=== PATIENT | female | born 1975 | race Two or more races ===

== ENCOUNTER 2016-12-24 06:11 | Day surgery (SDC) | payer BC ==
[~2016-12-24] VITALS: Ht 152.4 cm; Wt 84.1 kg
[~2016-12-24 06:11] MED LIST: ASPI81CH3 PO; CLON0.5T PO; GUAI600 PO; HYDR50TA94 PO; LIDO1SOL PO; METO100T9 PO; OMEP40CA2 PO; SERT-132 PO; ZOCO40TA PO
[2016-12-24] MEDS ORDERED: ACETAMINOPHEN 1000 MG/100 ML 0 ML IV ONE (06:24)
[2016-12-24] MEDS ORDERED: ISOPROTERENOL HCL 1 MG/5 ML AMP ONE (06:54)
[2016-12-24] MEDS ORDERED: SODIUM CHLOR 0.9% 250 ML INJ 250 ML ONE (07:05)
[2016-12-24] MEDS ORDERED: LACTATED RINGER'S 1000 ML IV PRN (07:15)
[2016-12-24] MEDS ORDERED: POVIDONE IODINE 5% (ANTISEPSIS KIT) 4 APPLICATIONS EACH NARE PRN (07:15)
[2016-12-24] MEDS ORDERED: METOPROLOL TARTRATE 25 MG TAB PO PRN (07:15)
[2016-12-24] MEDS ORDERED: INSULIN HUMAN REGULAR 1,000 UNITS/10 ML VIAL SQ PRN (07:15)
[2016-12-24] MEDS ORDERED: LORazepam 1 MG TAB SL SCH (07:15)
[2016-12-24] MEDS ORDERED: SODIUM CHLORID 0.9% 500 ML IV PRN (07:15)
[2016-12-24] MEDS ORDERED: CHLORHEXIDINE GLUCONATE 2 % 1 PACK (2 CLOTHS) TOPICAL PRN (07:15)
[2016-12-24 07:28] LABS: AUTOMATED NEUTROPHIL # 2.8 TH/MM3 (1.8-7.7); BASOPHIL % 0.2 % (0.0-2.0); EOSINOPHIL # 0.1 TH/MM3 (0-0.4); EOSINOPHIL % 2.1 % (0.0-4.0); HEMATOCRIT 39.2 % (35.0-46.0); HEMOGLOBIN 13.1 GM/DL (11.6-15.3); INTERNATIONAL NORMALIZED RATIO 0.9 RATIO; LYMPH % 34.4 % (9.0-44.0); LYMPHOCYTE # 1.7 TH/MM3 (1.0-4.8); MEAN CELL VOLUME 87.6 FL (80.0-100.0); MEAN CORPUSCULAR HEMOGLOBIN 29.2 PG (27.0-34.0); MEAN CORPUSCULAR HGB CONC 33.4 % (32.0-36.0); MEAN PLATELET VOLUME 9.2 FL (7.0-11.0); MONO % 6.3 % (0.0-8.0); MONOCYTE # 0.3 TH/MM3 (0-0.9); PLATELET COUNT 252 TH/MM3 (150-450); PROTHROMBIN TIME - PATIENT 10.1 SEC (9.8-11.6); RED BLOOD COUNT 4.48 MIL/MM3 (4.00-5.30); RED CELL DISTRIBUTION WIDTH 13.1 % (11.6-17.2); WHITE BLOOD COUNT 4.9 TH/MM3 (4.0-11.0)
[2016-12-24] MEDS ORDERED: SODIUM CHLORID 0.9% 500 ML INJ 500 ML IV SCH (07:30)
[2016-12-24] MEDS ORDERED: NO HOME MEDICATIONS (07:43)
[2016-12-24 07:45] LABS: BICARBONATE 25.7 MEQ/L (21.0-32.0); CALCIUM 8.9 MG/DL (8.5-10.1); CREATININE 0.71 MG/DL (0.50-1.00)
[2016-12-24 08:24] VITALS: BP 137/84; PULSE 75; RESP 18; TEMP 97.8; O2SAT 99
[2016-12-24] MEDS ORDERED: PROPOFOL 200 MG/20 ML AMP ONE (09:02)
--- NOTE | 2016-12-24 09:16 | CATHPROC ---
[employer] HIS Report Study Information Study Number Admission Scheduled Start Study Start [id number] Dec 24 2016 6:11AM 12/24/2016 Dec 24 2016 7:45AM [place] Service Electrophysiology Study Admit Source Facility Department Other [facility] - Client Care Specialist Physician and Clinical Staff Initial Anne Valenzuela Yard Associate Niyah Ramirez,RN Yard Associate Yoko Noonan,RT(R) TECH2 Other Anesthesia, REPTILE KEEPER Recorder Niyah Ramirez,SHERLYN Scrub Joshua Castro,RT(R) Procedures Performed Procedure Ablation Procedure Equipment Time Hematology Technologist Description Size Mfg Part Number Used/Scrape d [id number] 07:47 [employer] INDUSTRIES PACK, CCL CUSTOM * Used *[id number] 07:47 [employer] PACER HSIEH, LIMB * 2530 *[id number] Used [id number] 07:47 [facility] BLANKET,WARM AIR CCL * Used *[id number] 07:47 [employer]HE[employer], JSN, QUAD FR 5 Used *[id number] 07:47 [employer] CATHETER, JSN, QUAD FR 5 Used *[id number] 07:47 [employer] CATHETER, JSN, QUAD FR 5 Used *[id number] 07:47 [employer] CATHETER, JSN, QUAD FR 5 Used *[id number] 07:47 [employer] ELECTRODE KIT, SHERRELL X SURFACE * [id number] Used [id number] 07:48 [employer] SHEATH, EPS, FR5 FAST CATH FR 5 Used *[id number] [id number] 07:48 [employer] SHEATH, EPS, FR5 FAST CATH FR 5 Used *[id number] 718982 07:48 [employer] SHEATH, EPS, FR5 FAST CATH FR 5 Used *[id number] 563331 07:48 [employer] SHEATH, EPS, FR6 FAST CATH FR 6 Used *[id number] 137058 07:48 [facility] SHEATH, EPS, FR8 FAST CATH FR 8 Used *[id number] [facility] PAD, ELECTROSURGICAL 07:47 * [id number] *[id number] Used SURGICAL GROUNDING (BLUE) Medication Medication Total Dose (Bolus/Oral) Medication Total Dosage/Unit 1% XYLOCAINE 40 mL Medications (Bolus/Oral) Medication Time Given Dosage/Unit Administered By Reason 1% XYLOCAINE 12/24/2016 8:26:07 AM 20 mL Anne Santiago 20 mL 1% XYLOCAINE given in lab by Anne Santiago in Left Groin via Subcutaneous. 1% XYLOCAINE 12/24/2016 8:28:59 AM 20 mL Anne Santiago 20 mL 1% XYLOCAINE given in lab by Anne Santiago in Right Groin via Subcutaneous. Medication (Drip) Medication Time Given Dosage/Unit Concentration/Unit Diluent (ml) Solution ISUPREL 12/24/2016 8:41:23 AM 4 mcg/min 1 mg 250 NaCl .9 4 mcg/min ISUPREL given in lab by Anesthesia, REPTILE KEEPER via Peripheral IV. Pump/Drip Flow = 60 ml/hr using NaCl .9 with a concentration of 1 mg in 250 ml. Ordered by Anne Santiago. ISUPREL 12/24/2016 8:44:32 AM 2 mcg/min 1 mg 250 NaCl .9 2 mcg/min ISUPREL given in lab by Anesthesia, REPTILE KEEPER via Peripheral IV. Pump/Drip Flow = 30 ml/hr using NaCl .9 with a concentration of 1 mg in 250 ml. Ordered by Anne Santiago. DECREASED Initial Case Assessment Cardiovascular HR Rhythm NIBP Chest Pain 78 SR 128/68 0 Edema Present Skin color Skin None Normal Warm Dry Circulatory - Right Pulses Dorsalis Pedis 2 Scale (0,1,2,3,4,d) Circulatory - Left Pulses Dorsalis Pedis 2 Scale (0,1,2,3,4,d) Neurological State Oriented to time-place- Alert Moves all extremities person Respiration - General Respiration Rate SpO2 (%) (B/min) 18 96 Final Case Assessment Cardiovascular HR Rhythm NIBP Chest Pain 88 SR 101/56 0 Edema Present Skin color Skin None Normal Warm Dry Circulatory - Right Pulses Dorsalis Pedis 2 Scale (0,1,2,3,4,d) Circulatory - Left Pulses Dorsalis Pedis 2 Scale (0,1,2,3,4,d) Neurological State Oriented to time-place- Alert Moves all extremities person Respiration - General Respiration Rate SpO2 (%) O2 (lpm) (B/min) 18 97 2 Chronological Log Time Study Chronological Log 7:40:32 Patient arrived via Bed. 7:40:48 Anesthesia at bedside. Assumes care of patient. SEE RECORDS FOR ALL MEDS AND VITALS DURING PROCEDURE. 7:45:44 Patient Name, D.O.B, / Armband Verified By R.N. 7:45:46 Consent signed by the physician and the patient and verified by the Client Care Specialist staff. 7:45:47 Pre-op and post- op instructions given; patient acknowledges understanding of instructions. 7:45:51 Presedation assessment performed by Client Care Specialist RN. 7:45:55 Patient has been NPO for More than 6Hrs. 7:45:58 Skin Breakdown/none per patient 7:46:55 Patient Warmer Placed on the Table. 7:46:56 Disposable Defibrillator Pads Placed On Patient. 7:46:57 [place] Prominences Protected 7:58:08 Verbal Stimulation=2 Physical Stimulation=2 Airway=2 Respiration=2 TOTAL=8. (0=absent, 1=li mited, 2=present) 8:04:00 paged 8:04:38 A # 20 IV was noted in the Forearm (right). Grade = 0 8:04:39 A # 20 IV was noted in the Antecubital (left). Grade = 0 8:05:36 MD responded 8:07:17 Reference ECG taken 8:07:51 History and physical on the chart or being dictated. 8:07:52 Table restraints applied according to hospital policy 8:07:54 Bilateral groins prepped with 2% chlorhexidine, and draped after a 3 minute waiting time. Assessment: Initial Case, HR=78 BPM, Rhythm=SR, ENPG=241/68 mmhg, Chest Pain=0, Edema=None, [place] r=Normal, Skin = Warm, Dry Right Pulses: Claus Ped=2 8:07:59 Left Pulses: Claus Ped=2 Neurological: State=Alert, Ox3, MARTIN Respiration: Resp=18 B/min, SpO2=96 % 8:21:14 MD arrived. Time Out. Correct patient, procedure, procedure equipment, site and side verified with physician present. Time 8:25:45 concurred by MD, individual staff and REPTILE KEEPER. Time Out #2 - Consents verified, patient in correct position, all results are labled and display ed, safety precautions 8:25:47 taken, antibiotics administered. Time out concurred by MD, individual staff and REPTILE KEEPER in procedur e 8:25:48 Case Start 8:26:07 20 mL 1% XYLOCAINE given in lab by Anne Santiago in Left Groin via Subcutaneous. 8:27:38 Vascular access was obtained in the Fem Vein (left). 8:27:40 Vascular access was obtained in the Fem Vein (left). 8:27:41 Vascular access was obtained in the Fem Vein (left). 8:27:46 A SHEATH, EPS, FR5 FAST CATH FR 5 was advanced into the Fem Vein (left) using the Modified S eldinger technique. 8:28:03 A SHEATH, EPS, FR5 FAST CATH FR 5 was advanced into the Fem Vein (left) using the Modified S eldinger technique. 8:28:08 A SHEATH, EPS, FR5 FAST CATH FR 5 was advanced into the Fem Vein (left) using the Modified S eldinger technique. 8:28:59 20 mL 1% XYLOCAINE given in lab by Anne Santiago in Right Groin via Subcutaneous. 8:29:25 Vascular access was obtained in the Fem Vein (right). 8:29:27 Vascular access was obtained in the Fem Vein (right). 8:29:34 A SHEATH, EPS, FR6 FAST CATH FR 6 was advanced into the Fem Vein (right) using the Modified Seldinger technique. 8:29:59 A SHEATH, EPS, FR8 FAST CATH FR 8 was advanced into the Fem Vein (right) using the Modified Seldinger technique. A CATHETER, JSN, QUAD FR 5 was advanced vis Fem Vein (right) and placed in the CS. Placement was visually 8:32:33 confirmed under fluoroscopy. A CATHETER, JSN, QUAD FR 5 was advanced vis Fem Vein (left) and placed in the HIS. Placement was visually 8:32:45 confirmed under fluoroscopy. A CATHETER, JSN, QUAD FR 5 was advanced vis Fem Vein (left) and placed in the HRA. Placement was visually 8:33:02 confirmed under fluoroscopy. A CATHETER, JSN, QUAD FR 5 was advanced vis Fem Vein (left) and placed in the RVA. Placement was visually 8:33:12 confirmed under fluoroscopy. 4 mcg/min ISUPREL given in lab by Anesthesia, REPTILE KEEPER via Peripheral IV. Pump/Drip Flow = 60 ml/hr using NaCl .9 with 8:41:23 a concentration of 1 mg in 250 ml. Ordered by Anne Santiago. 2 mcg/min ISUPREL given in lab by Anesthesia, REPTILE KEEPER via Peripheral IV. Pump/Drip Flow = 30 ml/hr using NaCl .9 with 8:44:32 a concentration of 1 mg in 250 ml. Ordered by Anne Santiago. DECREASED 9:08:00 Case End 9:10:57 Ablation procedure performed: SVT. 9:11:03 EP Procedure was performed. EP STUDY ONLY NOT ABLE TO INDUCE 9:11:25 Catheter(s) removed without difficulty 9:11:28 Sheath(s) left in place, will be removed in Holding Area Assessment: Final Case, HR=88 BPM, Rhythm=SR, SDIR=638/56 mmhg, Chest Pain=0, Edema=None, Color= Normal, Skin = Warm, Dry Right Pulses: Claus Ped=2 9:11:29 Left Pulses: Claus Ped=2 Neurological: State=Alert, Ox3, MARTIN Respiration: Resp=18 B/min, SpO2=97 %, O2=2 lpm 9:12:19 Sterile dressing applied to site 9:12:20 No case complications noted. 9:12:21 Cine recording checked. 9:12:22 Bedside Report will be given. 9:12:25 DOCU called. Spoke to [employer] 9:14:58 Defibrillator and ground pads removed. Skin intact. End Study - Contrast Media Used In Study Contrast Total Opened (mL) Total Used (mL) Total Wasted (mL) Unspecified 0 0 0 End Study - Radiation Exposure Fluoro Time (minutes) 1.2 End Study - Patient Disposition Complications Transferred To Interventional Outcome No Telemetry Bed successful
--- NOTE | 2016-12-24 09:16 | CATHPROC ---
[employer] HIS Report Study Information Study Number Admission Scheduled Start Study Start [id number] Dec 24 2016 6:11AM 12/24/2016 Dec 24 2016 7:45AM [place] Service Electrophysiology Study Admit Source Facility Department Other [facility] - Counter Control Operator Physician and Clinical Staff Initial Anne Valenzuela Frame Wirer Niyah Ramirez,RN Frame Wirer Yoko Noonan,RT(R) TECH2 Other Anesthesia, ASSEMBLY TECHNICIAN Recorder Niyah Ramirez,SHERLYN Scrub Joshua Castro,RT(R) Procedures Performed Procedure Ablation Procedure Equipment Time Die Turner Description Size Mfg Part Number Used/Scrape d [id number] 07:47 [employer] PACK, CCL CUSTOM * Used *[id number] 07:47 [employer] PACER HSIEH, LIMB * 2530 *[id number] Used [id number] 07:47 [facility] BLANKET,WARM AIR CCL * Used *[id number] 241972 07:47 [employer] CATHETER, JSN, QUAD FR 5 Used *[id number] [id number] 07:47 [employer] CATHETER, JSN, QUAD FR 5 Used *[id number] 412059 07:47 [employer] CATHETER, JSN, QUAD FR 5 Used *[id number] 081866 07:47 [employer] CATHETER, JSN, QUAD FR 5 Used *[id number] 07:47 [employer] ELECTRODE KIT, SHERRELL X SURFACE * [id number] Used [id number] 07:48 [employer] SHEATH, EPS, FR5 FAST CATH FR 5 Used *[id number] 205208 07:48 [employer] SHEATH, EPS, FR5 FAST CATH FR 5 Used *[id number] 100115 07:48 [employer] SHEATH, EPS, FR5 FAST CATH FR 5 Used *[id number] 248141 07:48 [employer] SHEATH, EPS, FR6 FAST CATH FR 6 Used *[id number] 447628 07:48 [employer] SHEATH, EPS, FR8 FAST CATH FR 8 Used *[id number] [facility] PAD, ELECTROSURGICAL 07:47 * [id number] *[id number] Used SURGICAL GROUNDING (BLUE) Medication Medication Total Dose (Bolus/Oral) Medication Total Dosage/Unit 1% XYLOCAINE 40 mL Medications (Bolus/Oral) Medication Time Given Dosage/Unit Administered By Reason 1% XYLOCAINE 12/24/2016 8:26:07 AM 20 mL Anne Santiago 20 mL 1% XYLOCAINE given in lab by Anne Santiago in Left Groin via Subcutaneous. 1% XYLOCAINE 12/24/2016 8:28:59 AM 20 mL Anne Santiago 20 mL 1% XYLOCAINE given in lab by Anne Santiago in Right Groin via Subcutaneous. Medication (Drip) Medication Time Given Dosage/Unit Concentration/Unit Diluent (ml) Solution ISUPREL 12/24/2016 8:41:23 AM 4 mcg/min 1 mg 250 NaCl .9 4 mcg/min ISUPREL given in lab by Anesthesia, ASSEMBLY TECHNICIAN via Peripheral IV. Pump/Drip Flow = 60 ml/hr using NaCl .9 with a concentration of 1 mg in 250 ml. Ordered by Anne Santiago. ISUPREL 12/24/2016 8:44:32 AM 2 mcg/min 1 mg 250 NaCl .9 2 mcg/min ISUPREL given in lab by Anesthesia, ASSEMBLY TECHNICIAN via Peripheral IV. Pump/Drip Flow = 30 ml/hr using NaCl .9 with a concentration of 1 mg in 250 ml. Ordered by Anne Santiago. DECREASED Initial Case Assessment Cardiovascular HR Rhythm NIBP Chest Pain 78 SR 128/68 0 Edema Present Skin color Skin None Normal Warm Dry Circulatory - Right Pulses Dorsalis Pedis 2 Scale (0,1,2,3,4,d) Circulatory - Left Pulses Dorsalis Pedis 2 Scale (0,1,2,3,4,d) Neurological State Oriented to time-place- Alert Moves all extremities person Respiration - General Respiration Rate SpO2 (%) (B/min) 18 96 Final Case Assessment Cardiovascular HR Rhythm NIBP Chest Pain 88 SR 101/56 0 Edema Present Skin color Skin None Normal Warm Dry Circulatory - Right Pulses Dorsalis Pedis 2 Scale (0,1,2,3,4,d) Circulatory - Left Pulses Dorsalis Pedis 2 Scale (0,1,2,3,4,d) Neurological State Oriented to time-place- Alert Moves all extremities person Respiration - General Respiration Rate SpO2 (%) O2 (lpm) (B/min) 18 97 2 Chronological Log Time Study Chronological Log 7:40:32 Patient arrived via Bed. 7:40:48 Anesthesia at bedside. Assumes care of patient. SEE RECORDS FOR ALL MEDS AND VITALS DURING PROCEDURE. 7:45:44 Patient Name, D.O.B, / Armband Verified By R.N. 7:45:46 Consent signed by the physician and the patient and verified by the Counter Control Operator staff. 7:45:47 Pre-op and post- op instructions given; patient acknowledges understanding of instructions. 7:45:51 Presedation assessment performed by Counter Control Operator RN. 7:45:55 Patient has been NPO for More than 6Hrs. 7:45:58 Skin Breakdown/none per patient 7:46:55 Patient Warmer Placed on the Table. 7:46:56 Disposable Defibrillator Pads Placed On Patient. 7:46:57 [employer] Prominences Protected 7:58:08 Verbal Stimulation=2 Physical Stimulation=2 Airway=2 Respiration=2 TOTAL=8. (0=absent, 1=li mited, 2=present) 8:04:00 paged 8:04:38 A # 20 IV was noted in the Forearm (right). Grade = 0 8:04:39 A # 20 IV was noted in the Antecubital (left). Grade = 0 8:05:36 MD responded 8:07:17 Reference ECG taken 8:07:51 History and physical on the chart or being dictated. 8:07:52 Table restraints applied according to hospital policy 8:07:54 Bilateral groins prepped with 2% chlorhexidine, and draped after a 3 minute waiting time. Assessment: Initial Case, HR=78 BPM, Rhythm=SR, KQMM=576/68 mmhg, Chest Pain=0, Edema=None, [place] r=Normal, Skin = Warm, Dry Right Pulses: Claus Ped=2 8:07:59 Left Pulses: Claus Ped=2 Neurological: State=Alert, Ox3, MARTIN Respiration: Resp=18 B/min, SpO2=96 % 8:21:14 MD arrived. Time Out. Correct patient, procedure, procedure equipment, site and side verified with physician present. Time 8:25:45 concurred by MD, individual staff and ASSEMBLY TECHNICIAN. Time Out #2 - Consents verified, patient in correct position, all results are labled and display ed, safety precautions 8:25:47 taken, antibiotics administered. Time out concurred by MD, individual staff and ASSEMBLY TECHNICIAN in procedur e 8:25:48 Case Start 8:26:07 20 mL 1% XYLOCAINE given in lab by Anne Santiago in Left Groin via Subcutaneous. 8:27:38 Vascular access was obtained in the Fem Vein (left). 8:27:40 Vascular access was obtained in the Fem Vein (left). 8:27:41 Vascular access was obtained in the Fem Vein (left). 8:27:46 A SHEATH, EPS, FR5 FAST CATH FR 5 was advanced into the Fem Vein (left) using the Modified S eldinger technique. 8:28:03 A SHEATH, EPS, FR5 FAST CATH FR 5 was advanced into the Fem Vein (left) using the Modified S eldinger technique. 8:28:08 A SHEATH, EPS, FR5 FAST CATH FR 5 was advanced into the Fem Vein (left) using the Modified S eldinger technique. 8:28:59 20 mL 1% XYLOCAINE given in lab by Anne Santiago in Right Groin via Subcutaneous. 8:29:25 Vascular access was obtained in the Fem Vein (right). 8:29:27 Vascular access was obtained in the Fem Vein (right). 8:29:34 A SHEATH, EPS, FR6 FAST CATH FR 6 was advanced into the Fem Vein (right) using the Modified Seldinger technique. 8:29:59 A SHEATH, EPS, FR8 FAST CATH FR 8 was advanced into the Fem Vein (right) using the Modified Seldinger technique. A CATHETER, JSN, QUAD FR 5 was advanced vis Fem Vein (right) and placed in the CS. Placement was visually 8:32:33 confirmed under fluoroscopy. A CATHETER, JSN, QUAD FR 5 was advanced vis Fem Vein (left) and placed in the HIS. Placement was visually 8:32:45 confirmed under fluoroscopy. A CATHETER, JSN, QUAD FR 5 was advanced vis Fem Vein (left) and placed in the HRA. Placement was visually 8:33:02 confirmed under fluoroscopy. A CATHETER, JSN, QUAD FR 5 was advanced vis Fem Vein (left) and placed in the RVA. Placement was visually 8:33:12 confirmed under fluoroscopy. 4 mcg/min ISUPREL given in lab by Anesthesia, ASSEMBLY TECHNICIAN via Peripheral IV. Pump/Drip Flow = 60 ml/hr using NaCl .9 with 8:41:23 a concentration of 1 mg in 250 ml. Ordered by Anne Santiago. 2 mcg/min ISUPREL given in lab by Anesthesia, ASSEMBLY TECHNICIAN via Peripheral IV. Pump/Drip Flow = 30 ml/hr using NaCl .9 with 8:44:32 a concentration of 1 mg in 250 ml. Ordered by Anne Santiago. DECREASED 9:08:00 Case End 9:10:57 Ablation procedure performed: SVT. 9:11:03 EP Procedure was performed. EP STUDY ONLY NOT ABLE TO INDUCE 9:11:25 Catheter(s) removed without difficulty 9:11:28 Sheath(s) left in place, will be removed in Holding Area Assessment: Final Case, HR=88 BPM, Rhythm=SR, UNEF=553/56 mmhg, Chest Pain=0, Edema=None, Color= Normal, Skin = Warm, Dry Right Pulses: Claus Ped=2 9:11:29 Left Pulses: Claus Ped=2 Neurological: State=Alert, Ox3, MARTIN Respiration: Resp=18 B/min, SpO2=97 %, O2=2 lpm 9:12:19 Sterile dressing applied to site 9:12:20 No case complications noted. 9:12:21 Cine recording checked. 9:12:22 Bedside Report will be given. 9:12:25 DOCU called. Spoke to [email or web address] 9:14:58 Defibrillator and ground pads removed. Skin intact. End Study - Contrast Media Used In Study Contrast Total Opened (mL) Total Used (mL) Total Wasted (mL) Unspecified 0 0 0 End Study - Radiation Exposure Fluoro Time (minutes) 1.2 End Study - Patient Disposition Complications Transferred To Interventional Outcome No Telemetry Bed successful
--- NOTE | 2016-12-24 09:16 | CATHPROC ---
[employer] HIS Report Study Information Study Number Admission Scheduled Start Study Start [id number] Dec 24 2016 6:11AM 12/24/2016 Dec 24 2016 7:45AM [facility] Electrophysiology Study Admit Source Facility Department Other [facility] Physician and Clinical Staff Initial Anne Valenzuela Screening Unit Registered Nurse Niyah Ramirez,RN Screening Unit Registered Nurse Yoko Noonan,RT(R) TECH2 Other Anesthesia, [employer] BLASTING Recorder Niyah Ramirez,SHERLYN Scrub Joshua Castro,RT(R) Procedures Performed Procedure Ablation Procedure Equipment Time Occupational Physician Description Size Mfg Part Number Used/Scrape d [id number] 07:47 [employer] PACK, CCL CUSTOM * Used *[id number] 07:47 [employer] PACER HSIEH, LIMB * 2530 *[id number] Used [id number] 07:47 [facility] BLANKET,WARM AIR CCL * Used *[id number] 07:47 [employer] CATHETER, JSN, QUAD FR 5 Used *[id number] 07:47 [employer] CATHE[employer], JSN, QUAD FR 5 Used *[id number] 07:47 [employer] CATHETER, JSN, QUAD FR 5 Used *[id number] 594837 07:47 [employer] CATHETER, JSN, QUAD FR 5 Used *[id number] 07:47 [employer] ELECTRODE KIT, SHERRELL X SURFACE * [id number] Used [id number] 07:48 [employer] SHEATH, EPS, FR5 FAST CATH FR 5 Used *[id number] 07:48 [employer] SHEATH, EPS, FR5 FAST CATH FR 5 Used *[id number] [id number] 07:48 [employer] SHEATH, EPS, FR5 FAST CATH FR 5 Used *[id number] 352484 07:48 [employer] SHEATH, EPS, FR6 FAST CATH FR 6 Used *[id number] 591273 07:48 [employer] SHEATH, EPS, FR8 FAST CATH FR 8 Used *[id number] [facility] PAD, ELECTROSURGICAL 07:47 * [id number] *[id number] Used SURGICAL GROUNDING (BLUE) Medication Medication Total Dose (Bolus/Oral) Medication Total Dosage/Unit 1% XYLOCAINE 40 mL Medications (Bolus/Oral) Medication Time Given Dosage/Unit Administered By Reason 1% XYLOCAINE 12/24/2016 8:26:07 AM 20 mL Anne Santiago 20 mL 1% XYLOCAINE given in lab by Anne Santiago in Left Groin via Subcutaneous. 1% XYLOCAINE 12/24/2016 8:28:59 AM 20 mL Anne Santiago 20 mL 1% XYLOCAINE given in lab by Anne Santiago in Right Groin via Subcutaneous. Medication (Drip) Medication Time Given Dosage/Unit Concentration/Unit Diluent (ml) Solution ISUPREL 12/24/2016 8:41:23 AM 4 mcg/min 1 mg 250 NaCl .9 4 mcg/min ISUPREL given in lab by Anesthesia, [employer] via Peripheral IV. Pump/Drip Flow = 60 ml/hr using NaCl .9 with a concentration of 1 mg in 250 ml. Ordered by Anne Santiago. ISUPREL 12/24/2016 8:44:32 AM 2 mcg/min 1 mg 250 NaCl .9 2 mcg/min ISUPREL given in lab by Anesthesia, [employer] BLASTING via Peripheral IV. Pump/Drip Flow = 30 ml/hr using NaCl .9 with a concentration of 1 mg in 250 ml. Ordered by Anne Santiago. DECREASED Initial Case Assessment Cardiovascular HR Rhythm NIBP Chest Pain 78 SR 128/68 0 Edema Present Skin color Skin None Normal Warm Dry Circulatory - Right Pulses Dorsalis Pedis 2 Scale (0,1,2,3,4,d) Circulatory - Left Pulses Dorsalis Pedis 2 Scale (0,1,2,3,4,d) Neurological State Oriented to time-place- Alert Moves all extremities person Respiration - General Respiration Rate SpO2 (%) (B/min) 18 96 Final Case Assessment Cardiovascular HR Rhythm NIBP Chest Pain 88 SR 101/56 0 Edema Present Skin color Skin None Normal Warm Dry Circulatory - Right Pulses Dorsalis Pedis 2 Scale (0,1,2,3,4,d) Circulatory - Left Pulses Dorsalis Pedis 2 Scale (0,1,2,3,4,d) Neurological State Oriented to time-place- Alert Moves all extremities person Respiration - General Respiration Rate SpO2 (%) O2 (lpm) (B/min) 18 97 2 Chronological Log Time Study Chronological Log 7:40:32 Patient arrived via Bed. 7:40:48 Anesthesia at bedside. Assumes care of patient. SEE RECORDS FOR ALL MEDS AND VITALS DURING PROCEDURE. 7:45:44 Patient Name, D.O.B, / Armband Verified By R.N. 7:45:46 Consent signed by the physician and the patient and verified by the [facility] staff. 7:45:47 Pre-op and post- op instructions given; patient acknowledges understanding of instructions. 7:45:51 Presedation assessment performed by [facility] RN. 7:45:55 Patient has been NPO for More than 6Hrs. 7:45:58 Skin Breakdown/none per patient 7:46:55 Patient Warmer Placed on the Table. 7:46:56 Disposable Defibrillator Pads Placed On Patient. 7:46:57 Lazara Prominences Protected 7:58:08 Verbal Stimulation=2 Physical Stimulation=2 Airway=2 Respiration=2 TOTAL=8. (0=absent, 1=li mited, 2=present) 8:04:00 paged 8:04:38 A # 20 IV was noted in the Forearm (right). Grade = 0 8:04:39 A # 20 IV was noted in the Antecubital (left). Grade = 0 8:05:36 MD responded 8:07:17 Reference ECG taken 8:07:51 History and physical on the chart or being dictated. 8:07:52 Table restraints applied according to hospital policy 8:07:54 Bilateral groins prepped with 2% chlorhexidine, and draped after a 3 minute waiting time. Assessment: Initial Case, HR=78 BPM, Rhythm=SR, VKAN=753/68 mmhg, Chest Pain=0, Edema=None, [place] r=Normal, Skin = Warm, Dry Right Pulses: Claus Ped=2 8:07:59 Left Pulses: Claus Ped=2 Neurological: State=Alert, Ox3, MARTIN Respiration: Resp=18 B/min, SpO2=96 % 8:21:14 MD arrived. Time Out. Correct patient, procedure, procedure equipment, site and side verified with physician present. Time 8:25:45 concurred by MD, individual staff and [employer]. Time Out #2 - Consents verified, patient in correct position, all results are labled and display ed, safety precautions 8:25:47 taken, antibiotics administered. Time out concurred by MD, individual staff and [employer] BLASTING in procedur e 8:25:48 Case Start 8:26:07 20 mL 1% XYLOCAINE given in lab by Anne Santiago in Left Groin via Subcutaneous. 8:27:38 Vascular access was obtained in the Fem Vein (left). 8:27:40 Vascular access was obtained in the Fem Vein (left). 8:27:41 Vascular access was obtained in the Fem Vein (left). 8:27:46 A SHEATH, EPS, FR5 FAST CATH FR 5 was advanced into the Fem Vein (left) using the Modified S eldinger technique. 8:28:03 A SHEATH, EPS, FR5 FAST CATH FR 5 was advanced into the Fem Vein (left) using the Modified S eldinger technique. 8:28:08 A SHEATH, EPS, FR5 FAST CATH FR 5 was advanced into the Fem Vein (left) using the Modified S eldinger technique. 8:28:59 20 mL 1% XYLOCAINE given in lab by Anne Santiago in Right Groin via Subcutaneous. 8:29:25 Vascular access was obtained in the Fem Vein (right). 8:29:27 Vascular access was obtained in the Fem Vein (right). 8:29:34 A SHEATH, EPS, FR6 FAST CATH FR 6 was advanced into the Fem Vein (right) using the Modified Seldinger technique. 8:29:59 A SHEATH, EPS, FR8 FAST CATH FR 8 was advanced into the Fem Vein (right) using the Modified Seldinger technique. A CATHETER, JSN, QUAD FR 5 was advanced vis Fem Vein (right) and placed in the CS. Placement was visually 8:32:33 confirmed under fluoroscopy. A CATHETER, JSN, QUAD FR 5 was advanced vis Fem Vein (left) and placed in the HIS. Placement was visually 8:32:45 confirmed under fluoroscopy. A CATHETER, JSN, QUAD FR 5 was advanced vis Fem Vein (left) and placed in the HRA. Placement was visually 8:33:02 confirmed under fluoroscopy. A CATHETER, JSN, QUAD FR 5 was advanced vis Fem Vein (left) and placed in the RVA. Placement was visually 8:33:12 confirmed under fluoroscopy. 4 mcg/min ISUPREL given in lab by Anesthesia, [employer] BLASTING via Peripheral IV. Pump/Drip Flow = 60 ml/hr using NaCl .9 with 8:41:23 a concentration of 1 mg in 250 ml. Ordered by Anne Santiago. 2 mcg/min ISUPREL given in lab by Anesthesia, [employer] BLASTING via Peripheral IV. Pump/Drip Flow = 30 ml/hr using NaCl .9 with 8:44:32 a concentration of 1 mg in 250 ml. Ordered by Anne Santiago. DECREASED 9:08:00 Case End 9:10:57 Ablation procedure performed: SVT. 9:11:03 EP Procedure was performed. EP STUDY ONLY NOT ABLE TO INDUCE 9:11:25 Catheter(s) removed without difficulty 9:11:28 Sheath(s) left in place, will be removed in Holding Area Assessment: Final Case, HR=88 BPM, Rhythm=SR, NZCB=402/56 mmhg, Chest Pain=0, Edema=None, Color= Normal, Skin = Warm, Dry Right Pulses: Claus Ped=2 9:11:29 Left Pulses: Claus Ped=2 Neurological: State=Alert, Ox3, MARTIN Respiration: Resp=18 B/min, SpO2=97 %, O2=2 lpm 9:12:19 Sterile dressing applied to site 9:12:20 No case complications noted. 9:12:21 Cine recording checked. 9:12:22 Bedside Report will be given. 9:12:25 DOCU called. Spoke to [employer] 9:14:58 Defibrillator and ground pads removed. Skin intact. End Study - Contrast Media Used In Study Contrast Total Opened (mL) Total Used (mL) Total Wasted (mL) Unspecified 0 0 0 End Study - Radiation Exposure Fluoro Time (minutes) 1.2 End Study - Patient Disposition Complications Transferred To Interventional Outcome No Telemetry Bed successful
[2016-12-24] MEDS ORDERED: DO NOT ADM ANY ANTICOAGULANT DRUGS PRN (09:25)
[2016-12-24] MEDS ORDERED: oxyCODONE/ACETAMINOPHEN 5 MG/325 MG TAB PO PRN ×2 (10:00)
[2016-12-24] MEDS ORDERED: LORazepam 2 MG/ML VIAL IV PUSH PRN (10:00)
[2016-12-24] MEDS ORDERED: METOCLOPRAMIDE HCL 10 MG/2 ML VIAL IV PUSH PRN (10:00)
[2016-12-24] MEDS ORDERED: ATROPINE SULFATE 1 MG/ML VIAL IV PUSH PRN (10:00)
[2016-12-24] MEDS ORDERED: LIDOCAINE HCL 1% 50 ML VIAL INFIL PRN (10:00)
[2016-12-24] MEDS ORDERED: ONDANSETRON HCL 4 MG/2 ML VIAL IV PUSH PRN (10:00)
[2016-12-24] MEDS ORDERED: SODIUM CHLOR 0.9% 250 ML INJ 250 ML IV PRN (10:00)
--- NOTE | 2016-12-24 10:06 | MA ---
cc: ABDULAZIZ LATHAM M.D. DATE 12/24/2016 PROCEDURE PERFORMED Electrophysiology study, CS cannulation, 3-D mapping, repeat electrophysiology study on Isuprel infusion. INDICATIONS Mrs. Morgan is a 41-year-old female with a history of atrial fibrillation. She had a previous ablation in 2014. Since then, no tachyarrhythmia. Last month went to the emergency room at [place] with supraventricular tachyarrhythmia. Tachycardia terminated with adenosine. Decision for electrophysiology study and ablation was taken. The risks, the nature and the benefit of the procedure are clearly stated to her. The risks include pneumothorax, cardiac perforation, stroke and even . She understood and agreed to proceed. PROCEDURE After written informed consent was obtained, the patient was brought to the EP lab where she was prepped and draped in the usual sterile fashion. Conscious sedation was initiated and maintained throughout the procedure by anesthesiologist. Once sedation verified, the right and left inguinal area was anesthetized with 2% Xylocaine. Using modified Seldinger technique, the left femoral vein was cannulated on three occasion and three guidewires were advanced. Over the wire, three 5-German Hemaquets were advanced. Then the right femoral vein was cannulated on two occasions and two guidewires were advanced over the wire, a 6 and an 8-German Hemaquet were advanced. Then under fluoroscopic guidance through the 5 and 6-German Hemaquet, four 5-German Magda curved quadripolar electrophysiology catheters were advanced and positioned on the His, upper right atrium, coronary sinus and right ventricular apex. Basic interval was measured, they were within normal limits. At this point, atrial pacing protocol was performed. Atrial pacing protocol consisted of incremental atrial pacing, as well as program stimulation with one drive train cycle length and up to two excess stimuli delivered. No tachyarrhythmia was induced. Then ventricular pacing protocol was performed. There was VA conduction. It was concentric. No tachyarrhythmia was induced ventricular pacing protocol consisted of incremental ventricular pacing, as well as program stimulation with one drive train cycle length and up to one extra stimuli delivered. Then Isuprel infusion was initiated. At 4 janelle, heart rate went to 140 beats per minute. I decreased it to 2 janelle and DC the Isuprel. Atrial pacing protocol and ventricular pacing protocol was pace performed on Isuprel and post Isuprel, no tachyarrhythmia was induced. I did pace from the coronary sinus. No tachyarrhythmia was induced. At that point, procedure was complete. All catheters were removed. The patient is going to be transferred to the recovery room. No incident report. The patient tolerated procedure. Blood loss minimal. 1. Electrocardiogram, at baseline, the patient was in sinus, postprocedure electrocardiogram was unchanged. 2. Basic interval. Basic cycle length was around 880 milliseconds, AH at 78 and HV at 6 milliseconds. 3. Atrial pacing protocol. Wenckebach of the node was 370 milliseconds at baseline. ERP of the node was 600, 300 milliseconds at baseline. No tachyarrhythmia was induced. 4. Ventricular pacing protocol. There was VA conduction. No tachyarrhythmia was induced. CONCLUSION Negative electrophysiology study for supraventricular and tachyarrhythmia. COMMENT AND RECOMMENDATIONS Mrs. Morgan has two or three episode of tachyarrhythmia in the past years. There is no recording of the tachyarrhythmia. There was apparently one that terminated with adenosine, but tracing not available. At this point after talking to her, she is very nervous. A loop recorder will be inserted for monitoring. That will be implanted later today. MD CHRISTINA Chen/CHELSI /9:47 AM /9:54 AM
--- NOTE | 2016-12-24 10:06 | MA ---
cc: ABDULAZIZ LATHAM M.D. DATE 12/24/2016 PROCEDURE PERFORMED Electrophysiology study, CS cannulation, 3-D mapping, repeat electrophysiology study on Isuprel infusion. INDICATIONS Mrs. Morgan is a 41-year-old female with a history of atrial fibrillation. She had a previous ablation in 2014. Since then, no tachyarrhythmia. Last month went to the emergency room at [place] with supraventricular tachyarrhythmia. Tachycardia terminated with adenosine. Decision for electrophysiology study and ablation was taken. The risks, the nature and the benefit of the procedure are clearly stated to her. The risks include pneumothorax, cardiac perforation, stroke and even . She understood and agreed to proceed. PROCEDURE After written informed consent was obtained, the patient was brought to the EP lab where she was prepped and draped in the usual sterile fashion. Conscious sedation was initiated and maintained throughout the procedure by anesthesiologist. Once sedation verified, the right and left inguinal area was anesthetized with 2% Xylocaine. Using modified Seldinger technique, the left femoral vein was cannulated on three occasion and three guidewires were advanced. Over the wire, three 5-Bulgarian Hemaquets were advanced. Then the right femoral vein was cannulated on two occasions and two guidewires were advanced over the wire, a 6 and an 8-Bulgarian Hemaquet were advanced. Then under fluoroscopic guidance through the 5 and 6-Bulgarian Hemaquet, four 5-Bulgarian Magda curved quadripolar electrophysiology catheters were advanced and positioned on the His, upper right atrium, coronary sinus and right ventricular apex. Basic interval was measured, they were within normal limits. At this point, atrial pacing protocol was performed. Atrial pacing protocol consisted of incremental atrial pacing, as well as program stimulation with one drive train cycle length and up to two excess stimuli delivered. No tachyarrhythmia was induced. Then ventricular pacing protocol was performed. There was VA conduction. It was concentric. No tachyarrhythmia was induced ventricular pacing protocol consisted of incremental ventricular pacing, as well as program stimulation with one drive train cycle length and up to one extra stimuli delivered. Then Isuprel infusion was initiated. At 4 janelle, heart rate went to 140 beats per minute. I decreased it to 2 janelle and DC the Isuprel. Atrial pacing protocol and ventricular pacing protocol was pace performed on Isuprel and post Isuprel, no tachyarrhythmia was induced. I did pace from the coronary sinus. No tachyarrhythmia was induced. At that point, procedure was complete. All catheters were removed. The patient is going to be transferred to the recovery room. No incident report. The patient tolerated procedure. Blood loss minimal. 1. Electrocardiogram, at baseline, the patient was in sinus, postprocedure electrocardiogram was unchanged. 2. Basic interval. Basic cycle length was around 880 milliseconds, AH at 78 and HV at 6 milliseconds. 3. Atrial pacing protocol. Wenckebach of the node was 370 milliseconds at baseline. ERP of the node was 600, 300 milliseconds at baseline. No tachyarrhythmia was induced. 4. Ventricular pacing protocol. There was VA conduction. No tachyarrhythmia was induced. CONCLUSION Negative electrophysiology study for supraventricular and tachyarrhythmia. COMMENT AND RECOMMENDATIONS Mrs. Morgan has two or three episode of tachyarrhythmia in the past years. There is no recording of the tachyarrhythmia. There was apparently one that terminated with adenosine, but tracing not available. At this point after talking to her, she is very nervous. A loop recorder will be inserted for monitoring. That will be implanted later today. MD CHRISTINA Chen/CHELSI /9:47 AM /9:54 AM
--- NOTE | 2016-12-24 10:06 | MA ---
cc: ABDULAZIZ LATHAM M.D. DATE 12/24/2016 PROCEDURE PERFORMED Electrophysiology study, CS cannulation, 3-D mapping, repeat electrophysiology study on Isuprel infusion. INDICATIONS Mrs. Morgan is a 41-year-old female with a history of atrial fibrillation. She had a previous ablation in 2014. Since then, no tachyarrhythmia. Last month went to the emergency room at [place] with supraventricular tachyarrhythmia. Tachycardia terminated with adenosine. Decision for electrophysiology study and ablation was taken. The risks, the nature and the benefit of the procedure are clearly stated to her. The risks include pneumothorax, cardiac perforation, stroke and even . She understood and agreed to proceed. PROCEDURE After written informed consent was obtained, the patient was brought to the EP lab where she was prepped and draped in the usual sterile fashion. Conscious sedation was initiated and maintained throughout the procedure by anesthesiologist. Once sedation verified, the right and left inguinal area was anesthetized with 2% Xylocaine. Using modified Seldinger technique, the left femoral vein was cannulated on three occasion and three guidewires were advanced. Over the wire, three 5-Portuguese Hemaquets were advanced. Then the right femoral vein was cannulated on two occasions and two guidewires were advanced over the wire, a 6 and an 8-Portuguese Hemaquet were advanced. Then under fluoroscopic guidance through the 5 and 6-Portuguese Hemaquet, four 5-Portuguese Magda curved quadripolar electrophysiology catheters were advanced and positioned on the His, upper right atrium, coronary sinus and right ventricular apex. Basic interval was measured, they were within normal limits. At this point, atrial pacing protocol was performed. Atrial pacing protocol consisted of incremental atrial pacing, as well as program stimulation with one drive train cycle length and up to two excess stimuli delivered. No tachyarrhythmia was induced. Then ventricular pacing protocol was performed. There was VA conduction. It was concentric. No tachyarrhythmia was induced ventricular pacing protocol consisted of incremental ventricular pacing, as well as program stimulation with one drive train cycle length and up to one extra stimuli delivered. Then Isuprel infusion was initiated. At 4 janelle, heart rate went to 140 beats per minute. I decreased it to 2 janelle and DC the Isuprel. Atrial pacing protocol and ventricular pacing protocol was pace performed on Isuprel and post Isuprel, no tachyarrhythmia was induced. I did pace from the coronary sinus. No tachyarrhythmia was induced. At that point, procedure was complete. All catheters were removed. The patient is going to be transferred to the recovery room. No incident report. The patient tolerated procedure. Blood loss minimal. 1. Electrocardiogram, at baseline, the patient was in sinus, postprocedure electrocardiogram was unchanged. 2. Basic interval. Basic cycle length was around 880 milliseconds, AH at 78 and HV at 6 milliseconds. 3. Atrial pacing protocol. Wenckebach of the node was 370 milliseconds at baseline. ERP of the node was 600, 300 milliseconds at baseline. No tachyarrhythmia was induced. 4. Ventricular pacing protocol. There was VA conduction. No tachyarrhythmia was induced. CONCLUSION Negative electrophysiology study for supraventricular and tachyarrhythmia. COMMENT AND RECOMMENDATIONS Mrs. Morgan has two or three episode of tachyarrhythmia in the past years. There is no recording of the tachyarrhythmia. There was apparently one that terminated with adenosine, but tracing not available. At this point after talking to her, she is very nervous. A loop recorder will be inserted for monitoring. That will be implanted later today. MD CHRISTINA Chen/CHELSI /9:47 AM /9:54 AM
[2016-12-24] MEDS ORDERED: BACITRACIN OINT 0.9 GM PKT TOP ONE (10:30)
[2016-12-24] MEDS ORDERED: VANCOMYCIN HCL 1000 MG VIAL ONE (12:35)
[2016-12-24] MEDS ORDERED: MIDAZOLAM HCL 5 MG/5 ML VIAL ONE (12:38)
[2016-12-24] MEDS ORDERED: CHLORHEXIDINE GLUCONATE 2 % 1 PACK (2 CLOTHS) TOPICAL SCH (13:15)
[2016-12-24] MEDS ORDERED: MUPIROCIN 2% OINT 1 APPLIC/GM SYR NASAL SCH (13:15)
[2016-12-24] MEDS ORDERED: POVIDONE IODINE 5% (ANTISEPSIS KIT) 4 APPLICATIONS EACH NARE SCH (13:15)
[2016-12-24] MEDS ORDERED: VANCOMYCIN 1000 MG/NS 250 ML IV SCH ×2 (13:15)
[2016-12-24] MEDS ORDERED: SODIUM CHLOR 0.9% 250 ML INJ 250 ML IV ONE (14:41)
[2016-12-24] MEDS ORDERED: ONDANSETRON HCL 4 MG/2 ML VIAL IV PUSH ONE (14:41)
[2016-12-24] MEDS ORDERED: PHENYLEPHRINE HCL 10 MG/ML VIAL IV ONE (14:41)
[2016-12-24] MEDS ORDERED: PROPOFOL 200 MG/20 ML AMP IV ONE (14:41)
[2016-12-24] MEDS ORDERED: MIDAZOLAM HCL 2 MG/2 ML VIAL IV ONE (14:41)
[2016-12-24] MEDS ORDERED: PHENYLEPH/NS 1000 MCG/10 ML SYR IV ONE (14:41)
--- NOTE | 2016-12-24 15:02 | EKG ---
Date Performed: 12/24/2016 Time Performed: 07:10:14 PTAGE: 41 years EKG: Sinus rhythm Poor R wave progression - probable normal variant Inferior T wave changes are nonspecific Low QRS vo ltages in precordial leads Borderline ECG PREVIOUS TRACING : 02/15/2015 05.31 Compared to prior tracing no significant change DOCTOR: Chris Baxter Interpretating Date/Time 12/24/2016 14:55:37
--- NOTE | 2016-12-24 21:06 | MP ---
cc: ABDULAZIZ LATHAM M.D. DATE OF SURGERY 12/24/16 PROCEDURE Loop recorder insertion. HISTORY Mrs. Morgan is a 41-year-old female with tachyarrhythmia. Electrophysiology study negative, will undergo loop recorder insertion. The risks, the nature and the benefit of the procedure are clearly stated to her. Risks include pneumothorax, infection, stroke and even . She understood and agreed to proceed. PROCEDURE IN DETAIL After written informed consent was obtained, the patient was evaluated. Conscious sedation was initiated and maintained throughout the procedure by using intravenous Versed and intravenous fentanyl. Once sedation was verified, the left parasternal area was anesthetized with 2% Xylocaine. Using the cutter, 11-cm incision was made. Subsequently, the loop was injected under the skin. After adequate sensing obtained, the border was reapproximated using Dermabond and Steri-Strips. No incident reported. The patient tolerated procedure. IMPLANTED HARDWARE The implanted loop recorder is a [employer] model number LNQ11, serial number [id number]. SENSING Sensing of R wave at 0.32 mV. SETTING Kofi set at 40 and tachy over 160. CONCLUSION Successful loop recorder insertion COMMENT AND RECOMMENDATIONS The patient is going to be observed and discharged home later today. MD CHRISTINA Chen/ /1:36 PM /8:56 PM
--- NOTE | 2016-12-24 21:06 | MP ---
cc: ABDULAZIZ LATHAM M.D. DATE OF SURGERY 12/24/16 PROCEDURE Loop recorder insertion. HISTORY Mrs. Morgan is a 41-year-old female with tachyarrhythmia. Electrophysiology study negative, will undergo loop recorder insertion. The risks, the nature and the benefit of the procedure are clearly stated to her. Risks include pneumothorax, infection, stroke and even . She understood and agreed to proceed. PROCEDURE IN DETAIL After written informed consent was obtained, the patient was evaluated. Conscious sedation was initiated and maintained throughout the procedure by using intravenous Versed and intravenous fentanyl. Once sedation was verified, the left parasternal area was anesthetized with 2% Xylocaine. Using the cutter, 11-cm incision was made. Subsequently, the loop was injected under the skin. After adequate sensing obtained, the border was reapproximated using Dermabond and Steri-Strips. No incident reported. The patient tolerated procedure. IMPLANTED HARDWARE The implanted loop recorder is a [employer] model number LNQ11, serial number [id number]. SENSING Sensing of R wave at 0.32 mV. SETTING Kofi set at 40 and tachy over 160. CONCLUSION Successful loop recorder insertion COMMENT AND RECOMMENDATIONS The patient is going to be observed and discharged home later today. MD CHRISTINA Chen/ /1:36 PM /8:56 PM
--- NOTE | 2016-12-24 21:06 | MP ---
cc: ABDULAZIZ LATHAM M.D. DATE OF SURGERY 12/24/16 PROCEDURE Loop recorder insertion. HISTORY Mrs. Morgan is a 41-year-old female with tachyarrhythmia. Electrophysiology study negative, will undergo loop recorder insertion. The risks, the nature and the benefit of the procedure are clearly stated to her. Risks include pneumothorax, infection, stroke and even . She understood and agreed to proceed. PROCEDURE IN DETAIL After written informed consent was obtained, the patient was evaluated. Conscious sedation was initiated and maintained throughout the procedure by using intravenous Versed and intravenous fentanyl. Once sedation was verified, the left parasternal area was anesthetized with 2% Xylocaine. Using the cutter, 11-cm incision was made. Subsequently, the loop was injected under the skin. After adequate sensing obtained, the border was reapproximated using Dermabond and Steri-Strips. No incident reported. The patient tolerated procedure. IMPLANTED HARDWARE The implanted loop recorder is a [employer] model number LNQ11, serial number [id number]. SENSING Sensing of R wave at 0.32 mV. SETTING Kofi set at 40 and tachy over 160. CONCLUSION Successful loop recorder insertion COMMENT AND RECOMMENDATIONS The patient is going to be observed and discharged home later today. MD CHRISTINA Chen/ /1:36 PM /8:56 PM
--- NOTE | 2016-12-24 23:36 | EKG ---
Date Performed: 12/24/2016 Time Performed: 10:33:40 PTAGE: 41 years EKG: Sinus rhythm Inferior infarct - age undetermined Low QRS voltages in precordial leads Abnormal ECG PREVIOUS TRACING : 12/24/2016 07.10 Compared to prior tracing no significant change DOCTOR: Chris Baxter Interpretating Date/Time 12/24/2016 23:35:05
== END 2016-12-24 14:55 | disposition home or self-care (01) ==
LOC: HDIC 06:11 → HCAT 06:11
PROVIDERS: ATTEND Internal Medicine Interventional Cardiology
DX: I47.1 Supraventricular tachycardia (principal); R94.31 Abnormal electrocardiogram [ECG] [EKG]; E78.5 Hyperlipidemia, unspecified
CPT/HCPCS: 00530; 33282; 80048; 84702; 85025; 85610; 85730; 86850; 86900; 86901; 86920; 86922; 93005; 93620; 93623; C1730; C1764; J2250; J2370; J2405; J3010; J3370; J7050; J0131